=== PATIENT | female | born 1940 | race Caucasian/White ===

== ENCOUNTER → 2016-07-25 | Outpatient (CLI) | payer MEDICARE ==
[~2016-07-25] MED LIST: ALEVE220 M1 PO; ALPRAZOLAM0.25 MG PO; AMLODIPINE BESYL5 MG PO; ASPIRIN LO-DOSE81 MG PO; CELEXA40 MG PO; COLACE100 MG PO; DELTASONE10 MG PO; ELAVIL25 MG PO; FLUOCIN ACET TOP; IMDUR60 MG PO; LIPITOR10 MG PO; MIRALAX17 GM PO; NORCO 5-325 MG1 TAB PO; PLAVIX75 MG PO; PRILOSEC20 MG PO; REQUIP0.5 MG PO; TYLENOL325 MG PO
== END | disposition disaster alternative care site (69) ==
LOC: LNHI 11:43
DX: E78.5 Hyperlipidemia, unspecified (principal); I25.10 Atherosclerotic heart disease of native coronary artery without angina pectoris; I10 Essential (primary) hypertension

== ENCOUNTER → 2016-09-02 | Outpatient (CLI) | payer MEDICARE ==
[2016-09-02 11:49] LABS: BASOPHIL # 0.1 K/uL (0.0-0.2); BASOPHIL % 0.5 %; EOSINOPHIL # 0.1 K/uL (0.0-0.5); EOSINOPHIL % 0.6 %; HEMATOCRIT 41.2 % (33.0-46.0); HEMOGLOBIN 13.5 g/dL (10.0-15.0); IMMATURE GRANULOCYTE # 0.1 K/uL (0.0-0.3); IMMATURE GRANULOCYTE % 0.4 %; LYMPHOCYTE # 1.3 K/uL (0.8-4.0); LYMPHOCYTE % 11.1 %; MCH 32.1 pg (27.0-34.0); MCHC 32.8 gm/dL (32.0-36.5); MCV 97.9 fl (83.0-98.0); MONOCYTE # 0.5 K/uL (0.0-1.0); MONOCYTE % 4.2 %; MPV 11.1 fl (9.4-12.4); NEUTROPHIL # (ANC) 9.4 K/uL (1.8-7.8); NEUTROPHIL % 83.2 %; NRBC % 0 /100WBC (0-0.00); PLATELET COUNT 193 K/uL (150-450); RBC 4.21 M/uL (3.50-5.50); RDW-CV 13.3 % (11.9-14.6); WBC 11.3 K/uL (4.0-11.0)
[2016-09-02 12:01] LABS: ALBUMIN 3.4 gm/dL (3.5-5.0); ANION GAP 11.2 (10.0-19.0); POTASSIUM 4.2 mMol/L (3.7-5.1); TOTAL BILIRUBIN 0.6 mg/dL (0.0-1.5); TOTAL PROTEIN 6.2 g/dL (6.0-8.4)
== END | disposition disaster alternative care site (69) ==
LOC: LNHI 11:44
PROVIDERS: Internal Medicine Interventional Cardiology
DX: I48.91 Unspecified atrial fibrillation (principal)